=== PATIENT | female | born 1985 | race Caucasian/White ===

== ENCOUNTER 2020-08-30 12:28 | Emergency (ER) | payer OTHER ==
[2020-08-30 13:30] VITALS: TEMP 98.3
[2020-08-30 14:13] LABS: Appearance,Urine Clear (Clear); Bilirubin,Urine Negative (Negative); Blood,Urine Trace (Negative); Color,Urine Light Yellow; Glucose,Urine (UA) Negative (Negative); Ketones,Urine Negative (Negative); Leukocyte Esterase,Urine Negative (Negative); Mucus,Urine Rare /hpf; Nitrite,Urine Negative (Negative); Protein,Urine Negative (Negative); RBC,Urine 9 /hpf (0-5); Specific Gravity,Urine 1.014 (1.001-1.035); Urobilinogen,Urine <2.0 mg/dL (<2.0); WBC,Urine <1 /hpf (0-5)
[2020-08-30 14:45] LABS: Basophils # (A) 0.1 k/uL (0-0.2); Basophils % (A) 1 %; Eosinophils # (A) 0.1 k/uL (0-0.7); Eosinophils % (A) 1 %; HCT 43.6 % (34.0-46.0); HGB 14.8 gm/dL (11.4-16.0); Lymphocytes # (A) 1.7 k/uL (1.0-4.8); Lymphocytes % (A) 16 %; MCH 32.4 pg (25.0-35.0); MCV 95.3 fL (80.0-100.0); Mean Platelet Volume 7.6; Monocytes # (A) 0.6 k/uL (0-1.0); Monocytes % (A) 6 %; Neutrophils # (A) 7.7 k/uL (1.3-7.7); Neutrophils % (A) 75 %; Platelet Count 399 k/uL (150-450); RBC 4.57 m/uL (3.80-5.40); RDW 11.8 % (11.5-15.5); WBC 10.3 k/uL (3.8-10.6)
[2020-08-30 14:57] LABS: ALT 11 U/L (4-34); AST 20 U/L (14-36); African American GFR (CKD) >90 (>60 ml/min/1.73 sqM); Albumin 4.3 g/dL (3.5-5.0); Alkaline Phosphatase 84 U/L (38-126); Anion Gap 8 mmol/L; Blood Urea Nitrogen 10 mg/dL (7-17); Calcium 9.1 mg/dL (8.4-10.2); Carbon Dioxide 26 mmol/L (22-30); Chloride 104 mmol/L (98-107); Glucose 91 mg/dL (74-99); Non-African American GFR(CKD) >90 (>60 ml/min/1.73 sqM); Potassium 4.2 mmol/L (3.5-5.1); Sodium 138 mmol/L (137-145); Total Bilirubin 0.3 mg/dL (0.2-1.3); Total Protein 7.1 g/dL (6.3-8.2)
[2020-08-30 15:10] LABS: HCG,Quantitative Serum 668.6 mIU/mL
--- NOTE | 2020-08-30 15:16 | ED ---
General Adult HPI - General Chief complaint: Vaginal Bleeding Stated complaint: Vaginal Bleeding, Time Seen by Provider: 08/30/20 14:06 Source: patient Mode of arrival: ambulatory Limitations: no limitations - History of Present Illness Initial comments: 34-year-old female presents to the emergency room for a chief complaint of vaginal bleeding. Patient's has had some vaginal bleeding since earlier today. Patient states it is very light. Patient is a female who just found out she was in the past 2 days. Patient states she was supposed to start her period last week so believes she is about 5 weeks . She has slight abdominal cramping but no abdominal pain. She denies nausea or vomiting. She does states she has breast tenderness. Patient is concerned that she could be miscarrying.Patient has no other complaints at this time including shortness of breath, chest pain, abdominal pain, nausea or vomiting, headache, or visual changes. - Related Data Allergies Allergy/AdvReac Type Severity Reaction Status Date / Time No Known Allergies Allergy Verified 08/30/20 14:08 Review of Systems ROS Statement: Those systems with pertinent positive or pertinent negative responses have been documented in the HPI. ROS Other: All systems not noted in ROS Statement are negative. Past Medical History Past Medical History: No Reported History History of Any Multi-Drug Resistant Organisms: None Reported Past Surgical History: No Surgical Hx Reported Past Psychological History: No Psychological Hx Reported Smoking Status: Current every day smoker Past Alcohol Use History: Rare Past Drug Use History: None Reported General Exam Limitations: no limitations General appearance: alert, in no apparent distress Head exam: Present: atraumatic, normocephalic, normal inspection Eye exam: Present: normal appearance, PERRL, EOMI. Absent: scleral icterus, conjunctival injection ENT exam: Present: normal exam, mucous membranes moist Neck exam: Present: normal inspection. Absent: tenderness, meningismus, lymphadenopathy Respiratory exam: Present: normal lung sounds bilaterally. Absent: respiratory distress, wheezes, rales, rhonchi, stridor Cardiovascular Exam: Present: regular rate, normal rhythm, normal heart sounds. Absent: systolic murmur, diastolic murmur, rubs, gallop, clicks GI/Abdominal exam: Present: soft, normal bowel sounds. Absent: distended, tenderness, guarding, rebound, rigid External exam: Present: normal external exam. Absent: erythema, swelling, lesions, lacerations, ecchymosis Speculum exam: Present: vaginal bleeding. Absent: normal speculum exam, erythema, vaginal discharge, cervical discharge, foreign body, tissue, laceration By manual exam: Present: normal by manual exam. Absent: cervical motion tenderness, adnexal tenderness, adnexal mass, uterine enlargement, uterine tenderness Neurological exam: Present: alert Course Vital Signs 08/30/20 08/30/20 13:25 18:28 Temperature 98.3 F Pulse Rate 75 114 H Respiratory 20 18 Rate Blood Pressure 147/104 126/78 O2 Sat by Pulse 100 100 Oximetry Medical Decision Making - Medical Decision Making vitals are stable. abdominal exam benign. Pelvic exam did reveal slight vaginal bleeding however no significant hemorrhage. No adnexal tenderness. CBC CMP unremarkable. Urinalysis does not show any evidence of infection. Patient did test positive for with an hCG is 668. O- blood type, patient given RhoGAM. Ultrasound showed no evidence of intrauterine gestation at this time. Findings may represent very early , miscarriage, or nonvisualized ecto pic. At this time not clinically consistent with ectopic as patient is not having any significant pain, just slight cramping. Ultrasound also revealed a 6.7 cm heterogeneous complex primarily solid-appearing left adnexal mass with questionable recurrent tract I'll appearance. Differential includes hemorrhagic cyst. Recommend follow up in 6-12 weeks to assess for resolution. No clinical concern for a torsion at this time. I did discuss this case with Dr. James who recommends repeating hCG in 2 days which I will write. She will see patient on . I discussed pelvic rest and not lifting any heavy objects were discussed that this could be a miscarriage and she will need to repeat her blood work for further information. I discussed return parameters which patient is agreeable to. - Lab Data Result diagrams: 08/30/20 14:28 08/30/20 14:28 Lab Results 08/30/20 08/30/20 08/30/20 Range/Units 14:02 14:02 14:28 WBC 10.3 (3.8-10.6) k/uL RBC 4.57 (3.80-5.40) m/uL Hgb 14.8 (11.4-16.0) gm/dL Hct 43.6 (34.0-46.0) % MCV 95.3 (80.0-100.0) fL MCH 32.4 (25.0-35.0) pg MCHC 34.0 (31.0-37.0) g/dL RDW 11.8 (11.5-15.5) % Plt Count 399 (150-450) k/uL MPV 7.6 Neutrophils % 75 % Lymphocytes % 16 % Monocytes % 6 % Eosinophils % 1 % Basophils % 1 % Neutrophils # 7.7 (1.3-7.7) k/uL Lymphocytes # 1.7 (1.0-4.8) k/uL Monocytes # 0.6 (0-1.0) k/uL Eosinophils # 0.1 (0-0.7) k/uL Basophils # 0.1 (0-0.2) k/uL Sodium (137-145) mmol/L Potassium (3.5-5.1) mmol/L Chloride (98-107) mmol/L Carbon Dioxide (22-30) mmol/L Anion Gap mmol/L BUN (7-17) mg/dL Creatinine (0.52-1.04) mg/dL Est GFR (CKD-EPI)AfAm (>60 ml/min/1.73 sqM) Est GFR (CKD-EPI)NonAf (>60 ml/min/1.73 sqM) Glucose (74-99) mg/dL Calcium (8.4-10.2) mg/dL Total Bilirubin (0.2-1.3) mg/dL AST (14-36) U/L ALT (4-34) U/L Alkaline Phosphatase (38-126) U/L Total Protein (6.3-8.2) g/dL Albumin (3.5-5.0) g/dL HCG, Quant mIU/mL Urine Color Light Yellow Urine Appearance Clear (Clear) Urine pH 7.0 (5.0-8.0) Ur Specific Douglas 1.014 (1.001-1.035) Urine Protein Negative (Negative) Urine Glucose (UA) Negative (Negative) Urine Ketones Negative (Negative) Urine Blood Trace H (Negative) Urine Nitrite Negative (Negative) Urine Bilirubin Negative (Negative) Urine Urobilinogen <2.0 (<2.0) mg/dL Ur Leukocyte Esterase Negative (Negative) Urine RBC 9 H (0-5) /hpf Urine WBC <1 (0-5) /hpf Urine Mucus Rare H (None) /hpf Urine HCG, Qual Detected (Not Detectd) Blood Type Blood Type Confirm Blood Type Recheck Bld Type Recheck Status Antibody Screen 08/30/20 08/30/20 08/30/20 Range/Units 14:28 14:28 14:28 WBC (3.8-10.6) k/uL RBC (3.80-5.40) m/uL Hgb (11.4-16.0) gm/dL Hct (34.0-46.0) % MCV (80.0-100.0) fL MCH (25.0-35.0) pg MCHC (31.0-37.0) g/dL RDW (11.5-15.5) % Plt Count (150-450) k/uL MPV Neutrophils % % Lymphocytes % % Monocytes % % Eosinophils % % Basophils % % Neutrophils # (1.3-7.7) k/uL Lymphocytes # (1.0-4.8) k/uL Monocytes # (0-1.0) k/uL Eosinophils # (0-0.7) k/uL Basophils # (0-0.2) k/uL Sodium 138 (137-145) mmol/L Potassium 4.2 (3.5-5.1) mmol/L Chloride 104 (98-107) mmol/L Carbon Dioxide 26 (22-30) mmol/L Anion Gap 8 mmol/L BUN 10 (7-17) mg/dL Creatinine 0.47 L (0.52-1.04) mg/dL Est GFR (CKD-EPI)AfAm >90 (>60 ml/min/1.73 sqM) Est GFR (CKD-EPI)NonAf >90 (>60 ml/min/1.73 sqM) Glucose 91 (74-99) mg/dL Calcium 9.1 (8.4-10.2) mg/dL Total Bilirubin 0.3 (0.2-1.3) mg/dL AST 20 (14-36) U/L ALT 11 (4-34) U/L Alkaline Phosphatase 84 (38-126) U/L Total Protein 7.1 (6.3-8.2) g/dL Albumin 4.3 (3.5-5.0) g/dL HCG, Quant 668.6 mIU/mL Urine Color Urine Appearance (Clear) Urine pH (5.0-8.0) Ur Specific Douglas (1.001-1.035) Urine Protein (Negative) Urine Glucose (UA) (Negative) Urine Ketones (Negative) Urine Blood (Negative) Urine Nitrite (Negative) Urine Bilirubin (Negative) Urine Urobilinogen (<2.0) mg/dL Ur Leukocyte Esterase (Negative) Urine RBC (0-5) /hpf Urine WBC (0-5) /hpf Urine Mucus (None) /hpf Urine HCG, Qual (Not Detectd) Blood Type O Negative Blood Type Confirm Blood Type Recheck No Previous Record Bld Type Recheck Status CABO Indicated Antibody Screen NEGATIVE 08/30/20 Range/Units 15:15 WBC (3.8-10.6) k/uL RBC (3.80-5.40) m/uL Hgb (11.4-16.0) gm/dL Hct (34.0-46.0) % MCV (80.0-100.0) fL MCH (25.0-35.0) pg MCHC (31.0-37.0) g/dL RDW (11.5-15.5) % Plt Count (150-450) k/uL MPV Neutrophils % % Lymphocytes % % Monocytes % % Eosinophils % % Basophils % % Neutrophils # (1.3-7.7) k/uL Lymphocytes # (1.0-4.8) k/uL Monocytes # (0-1.0) k/uL Eosinophils # (0-0.7) k/uL Basophils # (0-0.2) k/uL Sodium (137-145) mmol/L Potassium (3.5-5.1) mmol/L Chloride (98-107) mmol/L Carbon Dioxide (22-30) mmol/L Anion Gap mmol/L BUN (7-17) mg/dL Creatinine (0.52-1.04) mg/dL Est GFR (CKD-EPI)AfAm (>60 ml/min/1.73 sqM) Est GFR (CKD-EPI)NonAf (>60 ml/min/1.73 sqM) Glucose (74-99) mg/dL Calcium (8.4-10.2) mg/dL Total Bilirubin (0.2-1.3) mg/dL AST (14-36) U/L ALT (4-34) U/L Alkaline Phosphatase (38-126) U/L Total Protein (6.3-8.2) g/dL Albumin (3.5-5.0) g/dL HCG, Quant mIU/mL Urine Color Urine Appearance (Clear) Urine pH (5.0-8.0) Ur Specific Douglas (1.001-1.035) Urine Protein (Negative) Urine Glucose (UA) (Negative) Urine Ketones (Negative) Urine Blood (Negative) Urine Nitrite (Negative) Urine Bilirubin (Negative) Urine Urobilinogen (<2.0) mg/dL Ur Leukocyte Esterase (Negative) Urine RBC (0-5) /hpf Urine WBC (0-5) /hpf Urine Mucus (None) /hpf Urine HCG, Qual (Not Detectd) Blood Type Blood Type Confirm O Negative Blood Type Recheck Bld Type Recheck Status Antibody Screen Disposition Clinical Impression: Threatened miscarriage, Ovarian cyst Disposition: HOME SELF-CARE Condition: Good Instructions (If sedation given, give patient instructions): Threatened Miscarriage (ED) Additional Instructions: Please repeat blood work in 2 days by going to the outpatient lab. Follow up with Dr. James on . Return to the emergency room for any worsening symptoms. Is patient prescribed a controlled substance at d/c from ED?: No Referrals: Cesia Jamse DO [Doctor of Osteopathic Medicine] - 1-2 days Time of Disposition: 18:16
[2020-08-30] MEDS ORDERED: Rhogam IMMUNE GLOBULIN 1,500 UNIT/1 ML IM STA (15:49)
--- NOTE | 2020-08-30 17:14 | US ---
EXAMINATION TYPE: Transabdominal DATE OF EXAM: 08/30/2020 3:11 PM COMPARISON: NONE CLINICAL HISTORY: pain. vaginal bleeding. Last menstrual period 07/21/2020. EXAM PERFORMED: Transvaginal (TV) and Transabdominal (TA) EXAM MEASUREMENTS: GESTATIONAL AGE / DATING Physician Established: Not yet established Dates by LMP: (5 weeks/5 days) EDC: 04/27/21 Dates by First Scan: no prior exam Dates by Current Scan for: No IUP seen at this time MATERNAL ANATOMY Uterus: 7.8 x 4.3 x 5.0 cm Right Ovary: 3.1 x 2.3 x 1.5 cm. Positive color Doppler flow. Left Ovary: 7.2 x 5.0 x 4.7 cm. There is a somewhat heterogenous, complex primarily solid 6.7 x 4.5 x 5.0 cm mass of the left adnexa with no internal color Doppler flow. Questionable retractile appearan ce. Post CDS: Within normal limits Presence of free fluid: no Presence of corpus luteal cyst: Corpus luteal cyst versus follicle of the right ovary = 1.7 x 1.6 x 1.7 cm GESTATION / SURVEY IUP: No IUP seen at this time Date of LMP: 07/21/20 Beta HcG (if available): 668 IMPRESSION: 1. No evidence of intrauterine gestation at this time. Findings may represent very early , m iscarriage, or nonvisualized ectopic. Recommend follow-up with serial beta hCG. 2. 6.7 cm heterogenous, complex primarily solid appearing left adnexal mass, with questionable retrac tile appearance. Differential includes hemorrhagic ovarian cyst. Recommend follow-up in 6-12 weeks to assess for resolution. If there is clinical concern for left ovarian torsion, recommend follow-up wi th spectral Doppler waveform analysis of the ovary. 3. No pelvic free fluid.
[2020-08-30 18:33] VITALS: BP 126/78; PULSE 114; RESP 18
== END 2020-08-30 18:33 | disposition home or self-care (01) ==
LOC: EC 12:28
DX: O20.0 Threatened abortion (principal); O34.81 Maternal care for other abnormalities of pelvic organs, first trimester; O99.331 Smoking (tobacco) complicating pregnancy, first trimester; F17.200 Nicotine dependence, unspecified, uncomplicated; Z3A.01 Less than 8 weeks gestation of pregnancy
CPT/HCPCS: 36415; 86900; 86901; 80053; 85025; 86850; 81001; 81025; 84702; 76801; 76817; 99284; 96372; J2790

== ENCOUNTER → 2020-09-01 | Outpatient (CLI) | payer SELFPAY | END | disposition home or self-care (01) | LOC: LABWHC1 15:33 | PROVIDERS: ATTEND Physician Assistant Medical | DX: Z34.80 Encounter for supervision of other normal pregnancy, unspecified trimester (principal); Z3A.00 Weeks of gestation of pregnancy not specified | CPT/HCPCS: 36415; 84702 ==

== ENCOUNTER → 2020-09-10 | Outpatient (CLI) | payer SELFPAY | END | disposition home or self-care (01) | LOC: LABWHC1 16:17 | PROVIDERS: ATTEND Obstetrics & Gynecology | DX: O03.9 Complete or unspecified spontaneous abortion without complication (principal); Z3A.00 Weeks of gestation of pregnancy not specified | CPT/HCPCS: 36415; 84702 ==

== ENCOUNTER → 2021-03-16 | Outpatient (CLI) | payer BC | END | disposition home or self-care (01) | LOC: LABWHC1 12:12 | PROVIDERS: ATTEND Obstetrics & Gynecology | DX: N92.6 Irregular menstruation, unspecified (principal) | CPT/HCPCS: 36415; 84702 ==

== ENCOUNTER 2021-10-20 12:50 | Inpatient (IN) | payer BC ==
[2021-10-20] MEDS ORDERED: METHYLERGONOVINE 0.2 MG/ML 1 ML AMP IM PRN (13:29)
[2021-10-20] MEDS ORDERED: OXYTOCIN 10 UNIT/ML 1 ML VIAL IM PRN (13:29)
[2021-10-20] MEDS ORDERED: TERBUTALINE 1 MG/ML VIAL SQ PRN (13:29)
[2021-10-20] MEDS ORDERED: CARBOPROST TROMETHAMINE 250 MCG/ML 1 ML AMP IM PRN (13:29)
[2021-10-20] MEDS ORDERED: LIDOCAINE 0.5% (PF) 5 MG/ML (50 ML SDV) SQ PRN (13:29)
[2021-10-20] MEDS ORDERED: LACTATED RINGERS 1,000 ML IV SCH (13:30)
[2021-10-20] MEDS ORDERED: OXYTOCIN 30 UNITS/500 ML NS 30 UNIT in SALINE 1 500ML.BAG IV SCH ×3 (13:30→23:21)
[2021-10-20 14:31] LABS: Basophils % (A) 0 %; Eosinophils # (A) 0.1 k/uL (0-0.7); Eosinophils % (A) 1 %; HCT 39.5 % (34.0-46.0); HGB 13.1 gm/dL (11.4-16.0); Lymphocytes # (A) 1.8 k/uL (1.0-4.8); Lymphocytes % (A) 11 %; MCHC 33.2 g/dL (31.0-37.0); MCV 93.4 fL (80.0-100.0); Mean Platelet Volume 7.6; Monocytes # (A) 0.5 k/uL (0-1.0); Monocytes % (A) 3 %; Neutrophils # (A) 14.1 k/uL (1.3-7.7); Neutrophils % (A) 85 %; Platelet Count 345 k/uL (150-450); RBC 4.23 m/uL (3.80-5.40); RDW 12.6 % (11.5-15.5); WBC 16.6 k/uL (3.8-10.6)
[2021-10-20] MEDS ORDERED: SODIUM CHLORIDE 0.9% 100 ML BAG ONE (16:55)
[2021-10-20] MEDS ORDERED: fentaNYL (PF) 50 MCG/ML 5 ML AMP ONE (16:55)
[2021-10-20] MEDS ORDERED: BUPIVACAINE (PF) 0.25% 30 ML VIAL ONE (16:55)
--- NOTE | 2021-10-20 17:30 | P.HPOB ---
History of Present Illness H&P Date: 10/20/21 Chief Complaint: Contractions This is a 36-year-old female 2 para 0 with an estimated date of confinement of 10/22/2021, estimated gestational age of 39-5/7 weeks, who presents to labor and delivery with complaints of contractions that began a couple days ago but have become stronger and more regular. We eric course has been essentially uncomplicated. She has been monitored with surveillance after 32 weeks due to advanced maternal age. labs: GC/Chlamydia-negative Hepatitis B surface antigen-negative RPR-nonreactive Rubella-immune Blood type-O- Antibody screen-negative HIV-nonreactive Hemoglobin-14.7 Anatomy scan-within normal limits, left ovarian cyst is noted at 7.4 x 5.8 cm One hour Glucola-119 Group B streptococcus-negative Obstetrical history: . History of 1 miscarriage. Gynecologic history: No history of sexually transmitted diseases. Social history: She is single. She works at [employer]. Review of Systems Constitutional: Denies chills, Denies fever Eyes: denies blurred vision, denies pain Ears, nose, mouth and throat: Denies headache, Denies sore throat Cardiovascular: Denies chest pain, Denies shortness of breath Respiratory: Denies cough Gastrointestinal: Reports abdominal pain (Contractions) Genitourinary: Reports pelvic pain, Reports Musculoskeletal: Reports low back pain Integumentary: Denies pruritus, Denies rash Neurological: Denies numbness, Denies weakness Psychiatric: Reports anxiety Past Medical History Past Medical History: No Reported History History of Any Multi-Drug Resistant Organisms: None Reported Past Surgical History: No Surgical Hx Reported Past Anesthesia/Blood Transfusion Reactions: No Reported Reaction Past Psychological History: No Psychological Hx Reported Smoking Status: Current every day smoker Past Alcohol Use History: Rare Past Drug Use History: Marijuana (History of marijuana a few times a week prior to ) - Past Family History Mother Family Medical History: Diabetes Mellitus, Hypertension Medications and Allergies Home Medications Medication Instructions Recorded Confirmed Type No Known Home Medications 10/20/21 10/20/21 History Allergies Allergy/AdvReac Type Severity Reaction Status Date / Time No Known Allergies Allergy Verified 10/20/21 13:29 Exam Osteopathic Statement: *. No significant issues noted on an osteopathic structural exam other than those noted in the History and Physical/Consult. Vital Signs Temp Pulse Resp BP Pulse Ox 10/20/21 15:56 98.0 F 60 16 150/84 100 Intake and Output 10/20/21 10/20/21 10/20/21 06:59 14:59 22:59 Other: # Voids 1 Weight 90.718 kg 90.718 kg HEENT: Within normal limits Heart: Regular rate and rhythm Lungs: Clear to auscultation bilaterally Abdomen: Cervix: Initially is 6 cm/70-80%/-2 station heart tones are category 1 Contractions are irregular approximately 5-15 minutes apart Extremities: Negative Homans Results Result Diagrams: 10/20/21 14:10 Abnormal Lab Results - Last 24 Hours (Table) 10/20/21 Range/Units 14:10 WBC 16.6 H (3.8-10.6) k/uL Neutrophils # 14.1 H (1.3-7.7) k/uL Assessment and Plan (1) 39 weeks gestation of Current Visit: Yes Status: Acute Code(s): Z3A.39 - 39 WEEKS GESTATION OF SNOMED Code(s): 23282706 Plan: Admission for active labor. Epidural anesthesia if desired. Oxytocin augmentation of labor if necessary. Artificial rupture of membranes. Expectant management.
[2021-10-20] MEDS ORDERED: diphenhydrAMINE 50 MG/ML 1 ML VIAL IVP PRN ×4 (22:39→23:21)
[2021-10-20] MEDS ORDERED: LANOLIN CREAM 5 GM TUBE TOPICAL PRN ×2 (22:39→23:21)
[2021-10-20] MEDS ORDERED: ACETAMINOPHEN TAB 325 MG TAB PO PRN ×2 (22:39→23:21)
[2021-10-20] MEDS ORDERED: diphenhydrAMINE 50 MG CAP PO PRN ×2 (22:39→23:21)
[2021-10-20] MEDS ORDERED: BENZOCAINE/MENTHOL SPRAY 1 GM/SPRAY AEROSOL TOPICAL PRN ×2 (22:39→23:21)
[2021-10-20] MEDS ORDERED: SIMETHICONE 80 MG CHEWABLE PO PRN ×2 (22:39→23:21)
[2021-10-20] MEDS ORDERED: HYDROCORTISONE 2.5% RECTAL CREAM 30 GM TUBE RECTAL PRN ×2 (22:39→23:21)
[2021-10-20] MEDS ORDERED: ZOLPIDEM 5 MG TAB PO PRN ×2 (22:39→23:21)
[2021-10-20] MEDS ORDERED: IBUPROFEN 600 MG TAB PO PRN (22:39)
[2021-10-20] MEDS ORDERED: diphenhydrAMINE 25 MG CAP PO PRN ×2 (22:39→23:21)
--- NOTE | 2021-10-20 22:42 | P.PROBDLV ---
Vaginal Delivery Note - . Vaginal Delivery Note: This is a 36-year-old female 2 para 0 with an estimated date of confinement of 10/22/2021, estimated gestational age of 39-5/7 weeks, who presents to labor and delivery with complaints of contractions that began a couple days ago but have become stronger and more regular. Cervix is 67 m dilated, 80% effaced, -2 station. She is daphney every few minutes. heart tones 135 with moderate variability and reactive. Amniotomy performed 1716 and thick meconium fluid noted. When she was uncomfortable she did get an epidural. Her cervix was completely dilated at 2001. She pushed, delivered a viable male infant over intact perineum under epidural anesthesia at 2136. Head delivered OA, nuchal cord 1 identified and it was tight so it was clamped at the peritoneum and cut. Anterior shoulder delivered gentle downward guidance for by posterior shoulder and rest of body. Nose and mouth bulb suctioned, cord clamped and cut, infant placed mother's abdomen. Apgars 6, 8, weight 6 lbs. 10 oz. Placenta delivered spontaneous, intact with three-vessel cord at 2138. Vagina, cervix, perineum inspected. Second-degree midline laceration was repaired with 3-0 Vicryl. Estimated blood loss 150 mL. Mother and baby in stable condition.
[2021-10-21] MEDS: SENNOSIDES-DOCUSATE SODIUM 1 EACH TAB PO SCH (01:25)
[2021-10-21] MEDS: IBUPROFEN 600 MG TAB PO PRN ×2 (07:44→17:14)
[2021-10-21] MEDS ORDERED: SENNA LEAF EXTRACT SYRUP 528 MG/15 ML CUP PO SCH (08:00)
[2021-10-21] MEDS ORDERED: SENNOSIDES-DOCUSATE SODIUM 1 EACH TAB PO SCH (08:00)
--- NOTE | 2021-10-21 09:09 | P.DS ---
Providers Date of admission: 10/20/21 13:25 Expected date of discharge: 10/21/21 Attending physician: Cesia James Primary care physician: Stated None - Discharge Diagnosis(es) (1) 39 weeks gestation of Current Visit: Yes Status: Acute Hospital Course: This is a 36 year old female 2 para 0 at 39-5/7 weeks who presented in active labor. She underwent artificial rupture membranes with thick meconium noted. She did receive epidural anesthesia. She delivered vaginally a viable male on 04/22/2021 with scores of 6 at 1 minute and 8 at 5 minutes and 8 at 10 minutes with a weight of 6 lbs. 10 oz. Her course has been uncomplicated. Lochia is decreasing. Pain is fairly well controlled. She is breast-feeding. Vital signs are stable. Abdomen is soft with fundus firm and nontender. Extremities show negative Homans. Impression is status post vaginal delivery day #1. Plan is to discharge home today. Routine instructions are given. She will be given a prescription for ibuprofen and a breast pump. She is advised to call the office if she has any further questions or concerns prior to her appointment time. Procedures: Spontaneous vaginal delivery of a viable male on 10/20/2021 Patient Condition at Discharge: Stable Plan - Discharge Summary New Discharge Prescriptions: New Ibuprofen [Motrin] 600 mg PO Q6HR PRN #60 tab PRN Reason: Mild Pain (Scale 1 To 3) Discharge Medication List Ibuprofen [Motrin] 600 mg PO Q6HR PRN #60 tab 10/21/21 [Rx] Follow up Appointment(s)/Referral(s): Cesia James DO [Doctor of Osteopathic Medicine] - 6 Weeks Activity/Diet/Wound Care/Special Instructions: Instructions 1. Do not begin any exercise program for 3 weeks. 2. Do not resume sexual relations for 3 weeks or longer if uncomfortable. 3. You may take tub baths or showers at any time. 4. You may use tampons if desired after 3 weeks. 5. Keep the area of episiotomy (stitches) clean and dry. 6. If you are not nursing, wear a good fitting, supportive bra during the day and limit fluid intake for at least 1 week to prevent breast engorgement. 7. Call the office, [phone], within the next week to make appointment for your 6 week checkup if it has not already been made. 8. Report any of the following occurrences to the doctor promptly: a. Heavy, excessive bleeding b. Chills, fever c. Burning or frequency of urination d. Pain or redness and breasts if nursing e. Increasing pain or swelling in episiotomy (stitches). In addition to the above instructions, the following additional should be followed: 1. No heavy lifting or straining (exercising) until after 6 week checkup. 2. Keep abdominal incision clean and dry: You may wear a dressing if more comfortable. 3. Make office appointment for 10 days after going home or as instructed by her doctor. Discharge Disposition: HOME SELF-CARE
[2021-10-21 09:33] VITALS: RESP 16
--- NOTE | 2021-10-22 07:20 | P.PNOBGVD ---
Subjective - Subjective Patient reports: Reports appetite normal, Reports voiding normally, Reports pain well controlled, Reports ambulating normally : doing well Objective - Latest Vital Signs Latest vital signs: Vital Signs Temp Pulse Resp BP 10/22/21 00:00 98.1 F 82 16 132/80 10/21/21 16:50 98.3 F 104 H 16 157/73 10/21/21 08:00 97.7 F 104 H 16 150/73 Intake and Output 10/21/21 10/22/21 10/22/21 22:59 06:59 14:59 Other: # Voids 1 2 - Exam Lungs: bilateral: normal Chest: Normal S1, Normal S2 Extremities: Present: normal Abdomen: Present: normal appearance, soft Uterus: Present: normal, firm Assessment and Plan Assessment: day #2. Patient stayed yesterday because her delivery was late in the day and at least 24 hour testing had to be done.'s morning she continues to well. Vital signs are stable she is afebrile. Uterus is firm nontender she's having normal lochia. Mary Jane a normal course. Plan is to continue routine care and discharge home this morning. (1) Normal vaginal delivery Current Visit: Yes Status: Acute Code(s): O80 - ENCOUNTER FOR FULL-TERM UNCOMPLICATED DELIVERY SNOMED Code(s): 42117778
[2021-10-22 08:39] VITALS: BP 138/88; PULSE 66; TEMP 98.2
[2021-10-22] MEDS: SENNOSIDES-DOCUSATE SODIUM 1 EACH TAB PO SCH (08:46)
[2021-10-22] MEDS: IBUPROFEN 600 MG TAB PO PRN (08:47)
== END 2021-10-22 10:10 | disposition home or self-care (01) | DRG 807 ==
LOC: FBPOP 12:50 → 4FBP 13:25
PROVIDERS: ADMIT Obstetrics & Gynecology; ATTEND Obstetrics & Gynecology
PROC: 10E0XZZ Delivery of Products of Conception, External Approach (ICD-10-PCS; principal; 2021-10-20)
PROC: 10907ZC Drainage of Amniotic Fluid, Therapeutic from Products of Conception, Via Natural or Artificial Opening (ICD-10-PCS; principal; 2021-10-20)
PROC: 0KQM0ZZ Repair Perineum Muscle, Open Approach (ICD-10-PCS; principal; 2021-10-20)
DX: O99.334 Smoking (tobacco) complicating childbirth (principal); Z37.0 Single live birth; O77.0 Labor and delivery complicated by meconium in amniotic fluid; O70.1 Second degree perineal laceration during delivery; O69.81X0 Labor and delivery complicated by cord around neck, without compression, not applicable or unspecified; F17.210 Nicotine dependence, cigarettes, uncomplicated; Z3A.39 39 weeks gestation of pregnancy; Z82.49 Family history of ischemic heart disease and other diseases of the circulatory system; Z83.3 Family history of diabetes mellitus; Z28.310 Unvaccinated for COVID-19
CPT/HCPCS: 59025; 85025; 86850; 86900; 86901; 99213